=== PATIENT | female | born 1940 | race Caucasian/White ===

== ENCOUNTER → 2017-12-18 | Outpatient (CLI) | payer MEDICARE ==
[~2017-12-18] MED LIST: ASPIRIN325 MG PO; LOPRESSOR25 MG PO; OMEPRAZOLE20 MG PO; RANEXA500 M1 PO; SYNTHROID0.2 MG IJ; Synthroid,Levo75 MCG PO; VYTORIN 10 MG-41 TA1 PO
== END | disposition home or self-care (01) ==
LOC: LAB 11:34
PROVIDERS: Psychiatry & Neurology Neurology
DX: Z51.81 Encounter for therapeutic drug level monitoring (principal); Z79.899 Other long term (current) drug therapy